=== PATIENT | male | born 1985 | race Hispanic/Latino ===

== ENCOUNTER 2018-01-19 01:22 | Emergency (ER) | payer SELFPAY | END 2018-01-19 05:54 | disposition home or self-care (01) | LOC: EDH 01:22 | DX: J45.909 Unspecified asthma, uncomplicated (principal); K21.9 Gastro-esophageal reflux disease without esophagitis | CPT/HCPCS: 87804 ==

== ENCOUNTER 2019-01-31 22:58 | Emergency (ER) | payer SELFPAY ==
[2019-01-31] MEDS ORDERED: ACETAMINOPHEN EXTRA STRENGTH 500 MG TABLET ONE (23:33)
[2019-01-31] MEDS ORDERED: AMOXICILLIN/POTASSIUM CLAV 875-125 TABLET PO ONE (23:34)
== END 2019-02-01 00:32 | disposition home or self-care (01) ==
LOC: EDH 22:58
DX: H66.91 Otitis media, unspecified, right ear (principal); K21.9 Gastro-esophageal reflux disease without esophagitis

== ENCOUNTER 2019-02-03 11:05 | Emergency (ER) | payer SELFPAY ==
[2019-02-03] MEDS ORDERED: LIDOCAINE HCL-MPF 1% 2ML VIAL ONE (11:32)
== END 2019-02-03 11:47 | disposition home or self-care (01) ==
LOC: EDH 11:05
DX: H66.91 Otitis media, unspecified, right ear (principal); K21.9 Gastro-esophageal reflux disease without esophagitis; Z72.0 Tobacco use
CPT/HCPCS: 99283; J3490

== ENCOUNTER 2021-07-12 14:36 | Emergency (ER) | payer OTHER ==
[~2021-07-12] VITALS: Ht 175.3 cm; Wt 108.9 kg
[2021-07-12 15:42] LABS: BASOPHILS % (AUTO) 0.1 % (0.0-5.0); EOSINOPHILS % (AUTO) 1.8 % (0.0-8.0); HEMATOCRIT 44.9 % (42-54); LYMPHOCYTES % (AUTO) 11.4 % (21.0-51.0); MEAN CORPUSCULAR HEMOGLOBIN 30.8 pg (27.0-33.0); MEAN CORPUSCULAR VOLUME 93.3 fL (79-99); MONOCYTES % (AUTO) 6.1 % (3.0-13.0); NEUTROPHILS % (AUTO) 80.2 % (40.0-77.0); PLATELET COUNT (AUTO) 254 K/uL (130-400); RED BLOOD CELL COUNT(AUTO) 4.81 MIL/uL (4.50-6.20); RED CELL DISTRIBUTION WIDTH 12.5 % (11.0-15.5); WHITE BLOOD COUNT (AUTO) 7.1 K/uL (4.8-10.8)
[2021-07-12 15:54] LABS: INR 1.11 (0.85-1.15)
[2021-07-12 15:55] LABS: CREATININE 1.1 mg/dL (0.5-1.5); PARTIAL THROMBOPLASTIN TIME 31.6 SEC (26.3-35.5); POTASSIUM 3.5 mmol/L (3.5-5.1)
[2021-07-12 16:09] LABS: ALBUMIN 3.6 g/dL (3.5-5.0); BILIRUBIN,TOTAL 0.6 mg/dL (0.2-1.0); CRP QUANTITATIVE 120.1 mg/L (0.00-9.0); TOTAL PROTEIN, SERUM 8.7 g/dL (6.0-8.3)
[2021-07-12] MEDS ORDERED: 0.9%NACL 1000ML 1,000 ML IV ONE ×2 (16:30→20:00)
[2021-07-12] MEDS ORDERED: ACETAMINOPHEN 500 MG TABLET ONE (21:25)
[2021-07-12] MEDS ORDERED: IBUPROFEN 400 MG TABLET ONE (21:25)
[2021-07-12] MEDS ORDERED: ACETAMINOPHEN 500 MG TABLET PO ONE (21:30)
[2021-07-12] MEDS ORDERED: IBUPROFEN 800 MG TAB PO ONE (21:30)
[2021-07-12] MEDS ORDERED: ALBUHFA IH (21:55)
[2021-07-12] MEDS ORDERED: FLUT1DIS IH (21:55)
[2021-07-12 22:48] VITALS: BP 120/69
== END 2021-07-12 22:50 | disposition home or self-care (01) ==
LOC: EDH 14:36
DX: U07.1 COVID-19 (principal); J12.82 Pneumonia due to coronavirus disease 2019; J22 Unspecified acute lower respiratory infection; E86.0 Dehydration; Z79.1 Long term (current) use of non-steroidal anti-inflammatories (NSAID)
CPT/HCPCS: 36415; 71045; 80053; 82550 ×2; 83605; 84484; 85025; 85610; 85730; 86140; 87040 ×2; 93005; 96360; 96361 ×2; 99285; J7030 ×2